=== PATIENT | female | born 1960 | race Caucasian/White ===

== ENCOUNTER 2019-06-04 09:07 | Day surgery (SDC) | payer BC, SELFPAY ==
[2019-06-04 09:15] VITALS: BP 106/74; PULSE 87; RESP 18; TEMP 36.4; O2SAT 98
[2019-06-04] MEDS: Lactated Ringers 1,000 ML 80 ML IV (09:36)
--- NOTE | 2019-06-04 10:12 | W.PM.DSUDISC ---
Discharge Plan Disposition Patient Disposition: HOME Condition: Good Discharge Details Reason For Visit: Colonoscopy Attending Provider: Lupe Echavarria Primary Care Provider: Antoinette Santillan Home Meds and New Rx's Prescriptions: Continued rosuvastatin [Crestor] 5 mg tablet 5 mg PO DAILY RF: 0 amlodipine 5 MG tablet 5 mg PO DAILY RF: 0 levothyroxine [Synthroid] 88 MCG tablet 88 mcg PO DAILY RF: 0 losartan 25 MG tablet 25 mg PO DAILY RF: 0 aspirin [Aspirin Low-Strength] 81 MG tablet,chewable 81 mg PO DAILY RF: 0 diphenhydramine HCl [Benadryl] 25 MG capsule 25 mg PO BID RF: 0 cetirizine [Zyrtec] 10 mg tablet 10 mg PO DAILY RF: 0 nitroglycerin [Nitrostat] 0.4 MG tablet, sublingual 0.4 mg Sublingual PRN PRNRF: 0 Discontinued polyethylene glycol 3350 17 gram/dose powder 238 g PO ONCE Qty: 238 RF: 0 bisacodyl [Dulcolax (bisacodyl)] 5 mg tablet,delayed release (DR/EC) 5 mg PO ONCE Qty: 4 RF: 0 Discharge Instructions Additional Instructions: Findings: Numerous polyps were removed. My office will contact you with biopsy results. Follow up: Plan for a colonoscopy in one year Please call if you develop: fevers >101.5 Nausea or Vomiting Abdominal pain that is not transient DAY SURGERY UNIT POST COLONOSCOPY INSTRUCTIONS 1. Because there will be medication in your system for the next 24 hours, you may feel a little sleepy. Your coordination will be affected. Therefore: a. Do not drive or operate dangerous equipment for 24 hours. b. Do not drink alcohol beverages for 24 hours (not even beer). c. Plan to go home and rest for the day. 2. Generally there are no restrictions on your activity after a day or so has gone by, but you may feel a bit fatigued for a few days. 3 After you arrive home you may have a light meal and return to a normal diet as you can tolerate it without feeling sick to your stomach. 4. After surgery, you may feel pain or discomfort. This should be only transient, but if it persists please contact your doctor. 5. If there are any questions regarding the findings of your procedure, please feel free to contact your doctor. 6. If you are unable to contact your doctor with a problem, contact the [facility] [place] at [phone]. 4. Continue all your regular medications unless directed otherwise. I understand the above instructions and have no questions. Signature of Patient or Responsible Adult Escort Date/Time Name of Responsible Adult Escort Signature of Nurse Date/Time Activity:: Activity as Tolerated Diet:: As Tolerated Discharge Orders Discharge Orders: Discharge Order (Routine); Ordered 06/04/19 Ordered By: Lupe Echavarria DS: Diagnosis Discharge Diagnosis (1) Colon polyps: Status: Acute
--- NOTE | 2019-06-04 10:34 | BOWEL_PTH ---
PATIENT: Tiff Britt LOC: [facility] U#:[id number] AGE/SX: 58/F ROOM: RE06/04/[address]: Lupe Echavarria MD : 1960 BED: DIS: 06/04/2019 SPEC #: [id number] RECD: 06/04/19 12:48 STATUS: TYRESE REQ #: [id number] MAGED: 06/04/19 10:[address]: Lupe Echavarria DEPT: Surgical Specimen RECD BY: Maranda Nielsen ENTERED: 06/04/19 12:49 SP TYPE: Bowel OTHR DR: Antoinette Santillan Tissues: 1 - BIOPSY BOWEL 2 - BIOPSY BOWEL 3 - BIOPSY BOWEL 4 - BIOPSY BOWEL Procedures: GROSS AND MICRO LEVEL 4 Comments: [id number]
[2019-06-04 11:45] VITALS: BP 121/64; PULSE 68; RESP 16; TEMP 36.4; O2SAT 96
--- NOTE | 2019-06-04 12:02 | COLE_ITS ---
DATE OF PROCEDURE: June 04, 2019 PREOPERATIVE DIAGNOSIS: History of colon polyps. POSTOPERATIVE DIAGNOSIS: Colon polyps. PROCEDURE: Colonoscopy with polypectomy. SURGEON: Lupe Echavarria M.D. ANESTHESIA: Monitored Anesthesia Care INDICATIONS: This is a 58-year-old woman whose prior colonoscopy in 2016 showed tubular adenomas x 1 2. She is asymptomatic. PROCEDURE: She was placed in the left Abad position. Propofol was titrated to sedation. Digital re ctal examination revealed no abnormalities. The scope was advanced to the cecum without difficulty. The ileocecal valve and appendiceal orifice were clearly identified. Her prep was excellent. In th e cecum there were three diminutive polyps that were removed with cold snare polypectomy. In the pro ximal transverse colon there were three polyps removed with cold snare polypectomy and a fourth sligh tly more distal that was sent in the same specimen container. The descending colon had two polyps re moved with the use of cautery. The rectal area had six polyps removed using snare polypectomy and ca utery. These were sent in the same specimen container. Retroflex view showed no other abnormalities . All of these polyps appeared benign and were all less than a centimeter. Depending on the patholo gy results, she will need a follow-up in one to three years. My office will contact her. cc: Antoinette Santillan APRN
== END 2019-06-04 11:55 | disposition home or self-care (01) ==
PROVIDERS: PCP Nurse Practitioner; Visit Provider Surgery
PROC: 0DJD8ZZ Inspection of Lower Intestinal Tract, Via Natural or Artificial Opening Endoscopic (ICD-10-PCS; CPT 45378; principal; 2019-06-04 10:15)
DX: Z12.11 Encounter for screening for malignant neoplasm of colon (principal); D12.0 Benign neoplasm of cecum; D12.3 Benign neoplasm of transverse colon; D12.4 Benign neoplasm of descending colon; D12.8 Benign neoplasm of rectum; Z86.010 Personal history of colon polyps; I10 Essential (primary) hypertension; K21.9 Gastro-esophageal reflux disease without esophagitis
CPT/HCPCS: 45385; 45384; 88305

== ENCOUNTER 2020-05-26 07:00 | Day surgery (SDC) | payer BC, SELFPAY ==
[2020-05-26 07:16] VITALS: BP 111/74; PULSE 100; RESP 17; TEMP 36.4; O2SAT 97
[2020-05-26] MEDS: Lactated Ringers 1,000 ML 80 ML IV (07:38)
--- NOTE | 2020-05-26 08:02 | W.PM.DSUDISC ---
Discharge Plan Disposition Patient Disposition: HOME Condition: Good Discharge Details Reason For Visit: Colonoscopy Attending Provider: Lupe Echavarria Primary Care Provider: Antoinette Santillan Home Meds and New Rx's Prescriptions: Continued rosuvastatin [Crestor] 5 mg tablet 5 mg PO DAILY RF: 0 amlodipine 5 MG tablet 5 mg PO DAILY RF: 0 levothyroxine [Synthroid] 88 MCG tablet 88 mcg PO DAILY RF: 0 losartan 25 MG tablet 25 mg PO DAILY RF: 0 aspirin [Aspirin Low-Strength] 81 MG tablet,chewable 81 mg PO HS RF: 0 diphenhydramine HCl [Benadryl] 25 MG capsule 25 mg PO BID RF: 0 nitroglycerin [Nitrostat] 0.4 MG tablet, sublingual 0.4 mg Sublingual PRN PRNRF: 0 Discontinued polyethylene glycol 3350 17 gram/dose powder 238 g PO ONCE Qty: 238 RF: 0 bisacodyl 5 mg tablet,delayed release (DR/EC) 5 mg PO ONCE Qty: 4 RF: 0 Discharge Instructions Additional Instructions: Findings: 40 tiny polyps were removed. My office will contact you with biopsy results. Follow up: Plan for a colonoscopy in one year. Please call if you develop: fevers >101.5 Nausea or Vomiting Abdominal pain that is not transient DAY SURGERY UNIT POST COLONOSCOPY INSTRUCTIONS 1. Because there will be medication in your system for the next 24 hours, you may feel a little sleepy. Your coordination will be affected. Therefore: a. Do not drive or operate dangerous equipment for 24 hours. b. Do not drink alcohol beverages for 24 hours (not even beer). c. Plan to go home and rest for the day. 2. Generally there are no restrictions on your activity after a day or so has gone by, but you may feel a bit fatigued for a few days. 3 After you arrive home you may have a light meal and return to a normal diet as you can tolerate it without feeling sick to your stomach. 4. After surgery, you may feel pain or discomfort. This should be only transient, but if it persists please contact your doctor. 5. If there are any questions regarding the findings of your procedure, please feel free to contact your doctor. 6. If you are unable to contact your doctor with a problem, contact the hospital at [phone]. 7. Continue all your regular medications unless directed otherwise. I understand the above instructions and have no questions. Signature of Patient or Responsible Adult Escort Date/Time Name of Responsible Adult Escort Signature of Nurse Date/Time Activity:: Activity as Tolerated Diet:: As Tolerated Discharge Orders Discharge Orders: Discharge Order (Routine); Ordered 05/26/20 Ordered By: Lupe Echavarria DS: Diagnosis Discharge Diagnosis (1) Colon polyps: Status: Acute
--- NOTE | 2020-05-26 08:03 | W.COLOREPORT ---
Date of service: 05/26/20 Time of Service: 09:12 Colonoscopy Report Date of procedure: 05/26/20 Pre-op diagnosis general: History of colon polyps Post-op diagnosis procedure note: other (Colon polyps) Procedure: Colonoscopy with cold forceps polypectomy Surgeon: Lupe Echavarria Anesthesia proc note operative: MAC Indications: This patient presents for follow up colonoscopy. She had 15 polyps removed last year. No symptoms Procedure Description: The patient was placed in the left Abad position. Propofol was titrated to sedation. Digital rectal examination revealed no abnormalities. The scope was advanced to the cecum without difficulty. The ileocecal valve and appendiceal orifice were clearly identified. The prep was good. Numerous diminuitive polyps were removed with the cold forceps and sent to pathology. Nine polyps were removed from the cecum, 6 from the ascending colon, 8 from the transverse colon, 7 from the descending, 2 from the sigmoid and 8 from the rectum. Total number removed were 40. The patient tolerated the procedure well and was stable to recovery. Plan for colonoscopy in one year.
--- NOTE | 2020-05-26 08:30 | BOWEL_PTH ---
PATIENT: Tiff Britt LOC: [facility] U#:[id number] AGE/SX: 59/F ROOM: RE05/26/[address]: Lupe Echavarria MD : 1960 BED: DIS: 05/26/2020 SPEC #: [id number] RECD: 05/26/20 12:47 STATUS: TYRESE REQ #: [id number] MAGED: 05/26/20 08:[address]: Lupe Echavarria DEPT: Surgical Specimen RECD BY: Maranda Nielsen ENTERED: 05/26/20 12:51 SP TYPE: Bowel OTHR DR: Antoinette Santillan Tissues: 1 - BIOPSY BOWEL 2 - BIOPSY BOWEL 3 - BIOPSY BOWEL 4 - BIOPSY BOWEL 5 - BIOPSY BOWEL 6 - BIOPSY BOWEL Procedures: GROSS AND MICRO LEVEL 4 Comments: [id number]
[2020-05-26 10:33] VITALS: BP 117/78; PULSE 65; RESP 18; TEMP 36.3; O2SAT 98
== END 2020-05-26 10:15 | disposition home or self-care (01) ==
PROVIDERS: PCP Nurse Practitioner; Visit Provider Surgery
PROC: 0DJD8ZZ Inspection of Lower Intestinal Tract, Via Natural or Artificial Opening Endoscopic (ICD-10-PCS; CPT 45378; principal; 2020-05-26 08:30)
DX: Z12.11 Encounter for screening for malignant neoplasm of colon (principal); Z86.010 Personal history of colon polyps; D12.0 Benign neoplasm of cecum; D12.2 Benign neoplasm of ascending colon; D12.3 Benign neoplasm of transverse colon; D12.4 Benign neoplasm of descending colon; D12.5 Benign neoplasm of sigmoid colon; D12.8 Benign neoplasm of rectum
CPT/HCPCS: 45380; 88305; J2001

== ENCOUNTER 2021-10-15 04:02 | Outpatient (CLI) | payer BC, SELFPAY ==
[2021-10-16 20:41] LABS: COVID-19 RT-PCR UVMMC Result Negative (Negative)
== END 2021-10-15 04:03 | disposition home or self-care (01) ==
LOC: LBO 04:03
PROVIDERS: PCP Nurse Practitioner; Visit Provider Surgery
DX: Z20.822 Contact with and (suspected) exposure to COVID-19 (principal)
CPT/HCPCS: 87635; U0003

== ENCOUNTER 2021-10-17 12:25 | Day surgery (SDC) | payer BC, SELFPAY ==
--- NOTE | 2021-10-17 06:55 | W.COLOREPORT ---
Colonoscopy Report Date of procedure: 10/17/21 Pre-op diagnosis general: Colon Cancer Screening, Hx of colon polyps Post-op diagnosis procedure note: same Procedure: Colonoscopy with polypectomy Surgeon: Farzana Jones Anesthesia Type: General:No Airway (Mehul Joy CRNA) Estimated blood loss (mL): 5 Pathology: other (61 polyps) Complications: None Disposition: same day Indications: The patient is here for Colonoscopy pre-op. Her last screening was in 2019 and was remarkable for 40 tubular adenomatous polyps. She has no family history of colon cancer. She has not had any bowel habit changes. -Discussed colonoscopy bowel prep as well as the procedure. Discussed possible complications of the procedure to include bleeding, pain, perforation, missed small lesion/polyp, sore throat, aspiration and adverse reaction to the medications. Questions were answered to patient?s satisfaction. No guarantees were implied or given. She will hold her aspirin x 5 days prior to her procedure. Prep: Miralax/Dulcolax Procedure Start Time: 13:37 Procedure End Time: 15:03 Retraction Time: 68 minutes Findings: 61 polyps ranging in size from 0.3 cm to 0.8 cm Procedure Description: After informed consent was obtained the patient was taken to the procedure room and placed in a left decubitous position. Monitors were applied and a time out was done. The patients name, date of , procedure, allergies to medications and metal in their body was reviewed. The patient was then sedated. Once sedated and comfortable a rectal exam was done. External exam was normal. Internal exam revealed a normal sphincter tone and no palpable masses. The scope was then introduced and retro-flexed. No internal hemorrhoids, polyps or masses were identified on retro-flexion. The scope was then advanced to the cecum without difficulty. The ileocecal vlave and appendiceal orifice were identified. The prep was good. The scope was then slowly retracted over 68 minutes back into the rectum. Polyps were removed with cold forceps in the cecum x3, ascending colon x7, transverse colon x8, descending colon x18, sigmoid colon x20 and rectum x5. There was no diverticulosis noted. The scope was removed and the patient was woken up and taken back to Same day surgery in stable condition. The patient tolerated the procedure well and there were no immediate complications. Follow up: The patient should follow up in 1 year unless they develop changes in bowel habits or other new gastrointestinal complaints.
--- NOTE | 2021-10-17 06:56 | PDOC.DSDIS_ITS ---
Discharge Plan Disposition Patient Disposition: HOME Condition: Good Discharge Details Reason For Visit: Colonoscopy Attending Provider: Farzana Jones Primary Care Provider: Antoinette Santillan Home Meds and New Rx's Prescriptions: Continued famotidine 40 mg tablet 40 mg PO BID RF: 0 ondansetron 4 mg tablet,disintegrating 4 mg PO Q6H PRN (Reason: nausea and vomiting) Qty: 7 RF: 0 rosuvastatin [Crestor] 5 mg tablet 5 mg PO DAILY RF: 0 amlodipine 5 MG tablet 5 mg PO DAILY RF: 0 levothyroxine [Synthroid] 88 MCG tablet 88 mcg PO DAILY RF: 0 losartan 25 MG tablet 25 mg PO DAILY RF: 0 aspirin [Aspirin Low-Strength] 81 MG tablet,chewable 81 mg PO HS RF: 0 diphenhydramine HCl [Benadryl] 25 MG capsule 25 mg PO BID RF: 0 nitroglycerin [Nitrostat] 0.4 MG tablet, sublingual 0.4 mg Sublingual PRN PRNRF: 0 elderberry fruit 200 mg Capsule 200 mg PO DAILY RF: 0 Discontinued polyethylene glycol 3350 17 gram/dose powder 238 g PO ONCE Qty: 238 RF: 0 bisacodyl [Dulcolax (bisacodyl)] 5 mg tablet,delayed release (DR/EC) 5 mg PO ONCE Qty: 4 RF: 0 Discharge Instructions Additional Instructions: Findings: 61 polyps Follow up: I will refer you to Gastroenterology at [facility] to discuss genetic testing and follow their recommendations Please call if you develop: fevers >101.5 Nausea or Vomiting Abdominal pain that is not transient Rectal bleeding that is more then a tbsp A hard abdomen and inability to pass gas DAY SURGERY UNIT POST ENDOSCOPY INSTRUCTIONS Instructions for everyone who is given Anesthesia: For your safety, please do the following for the next 24 Hours: a. Do not drive or operate dangerous equipment b. Do not drink alcohol beverages or use any recreational drugs for the first 24 hours or while taking pain medications. The medications in your body may have a reaction that can be dangerous. c. Do not make any important decisions or sign any important papers 1. Generally there are no restrictions on your activity after a day or so has gone by, but you may feel a bit fatigued for a few days. 2. After you arrive home you may have a light meal and return to a normal diet as you can tolerate it without feeling sick to your stomach. 3. After surgery, you may feel pain or discomfort. This should be only transient, but if it persists please contact your doctor. 4. If there are any questions regarding the findings of your procedure, please feel free to contact your doctor. 6. If you are unable to contact your doctor with a problem, contact the hospital at [phone]. 7. Continue all your regular medications unless directed otherwise. I understand the above instructions and have no questions. Signature of Patient or Responsible Adult Escort Date/Time Name of Responsible Adult Escort Signature of Nurse Date/Time Activity:: Activity as Tolerated Diet:: As Tolerated Discharge Orders Discharge Orders: Discharge Order (Routine); Ordered 10/17/21 Ordered By: Farzana Jones
[2021-10-17 12:40] VITALS: BP 119/85; PULSE 109; RESP 16; TEMP 36; O2SAT 97
[2021-10-17] MEDS: Lactated Ringers 1,000 ML 80 ML IV (13:04)
--- NOTE | 2021-10-17 13:07 | W.ANESPRE ---
General Info Date of Service Date Performed: 10/17/21 Height: 5 ft 4 in Weight: 74.1 kg Body Mass Index (BMI): 28.0 Surgical Procedure: Operation Date: 10/17/21 12:50 Proposed Procedures Side Surgeon p Colonoscopy Farzana Jones MD Meds Allergies and Home Medications Allergies Allergy/AdvReac Type Severity Reaction Status Date / Time simvastatin AdvReac Verified 10/17/21 12:36 Home Medication Medication Instructions Recorded amlodipine 5 mg PO DAILY tab-cap 01/08/16 aspirin [Aspirin Low-Strength] 81 mg PO HS tab-cap 01/08/16 levothyroxine [Synthroid] 88 mcg PO DAILY tab-cap 01/08/16 losartan 25 mg PO DAILY tab-cap 01/08/16 diphenhydramine HCl [Benadryl] 25 mg PO BID tab-cap 01/12/16 nitroglycerin [Nitrostat] 0.4 mg SUBLINGUAL PRN PRN 02/05/16 rosuvastatin 5 mg tablet 5 mg PO DAILY 05/14/19 bisacodyl 5 mg tablet,delayed 5 mg PO ONCE #4 tab 10/08/21 release famotidine 40 mg tablet 40 mg PO BID 10/08/21 ondansetron 4 mg disintegrating 4 mg PO Q6H PRN #7 tab 10/08/21 tablet polyethylene glycol 3350 17 238 g PO ONCE #238 g 10/08/21 gram/dose oral powder elderberry fruit [Elderberry] 200 mg PO DAILY 10/16/21 Current Visit Medications: Current Medications Generic Name Dose Route Start Last Admin Trade Name Freq PRN Reason Stop Dose Admin Hyoscyamine Sulfate 0.125 mg 10/17/21 06:56 Hyoscyamine 0.125 Mg Sl/Oral/Chew SL DIRECTED PRN Ringer's Solution 1,000 mls @ 80 mls/hr 10/17/21 06:00 10/17/21 13:04 IV 10/19/21 23:59 80 mls/hr INFUSION ED Administration IV Miscellaneous Supplies 1 each 10/17/21 06:00 Iv Access IV 10/19/21 23:59 DIRECTED DE Ondansetron HCl 4 mg 10/17/21 06:56 Ondansetron 4 Mg/2 Ml Vial IVP Q4H PRN PRN Nausea / Vomiting Sodium Chloride 0 ml 10/17/21 06:00 Normal Saline Flush 10 Ml Syr IV 10/19/21 23:59 PRN PRN Sodium Chloride 0 ml 10/17/21 06:00 Normal Saline 10 Ml Vial IJ 10/19/21 23:59 DIRECTED PRN Sterile Water 0 ml 10/17/21 06:00 Water,Injection,Sterile 10 Ml Vial IJ 10/19/21 23:59 DIRECTED PRN PFSH Active Problems Active Problems: Problem Status Onset Code FH: breast cancer Z80.3 Colon polyps K63.5 History of colon polyps Z86.010 Tubular adenoma ~05/2019 D36.9 Medical History Medical History Adjustment disorder CAD (coronary artery disease) GERD (gastroesophageal reflux disease) Hypertension Hypothyroidism [place] (myocardial infarction) 2009 - cath showed no disease. Was told it was a coronary artery spasm F/U with at [facility] with Dr. Carlson and Dr. Zaragoza, last seen 2018 Tubular adenoma of colon Surgical History Surgical History heart cath 2009 History of colonoscopy 06/04/19 Dr Lupe Echavarria, [facility], 14 polyps, tubular adenomas, repeat in one year. Tobacco Smoking/Tobacco Use Status: Former Tobacco Use Alcohol Alcohol Intake: former Substance Use Substance use: Never Substance use type: does not use Vital Signs and Lab Results Vital Signs Most Recent Vital Signs in EMR: Most Recent Vital Signs Temp Pulse Resp BP Pulse Ox 36.0 C L 109 H 16 119/85 97 10/17/21 12:40 10/17/21 12:40 10/17/21 12:40 10/17/21 12:40 10/17/21 12:40 Lab Results Blood Type / Crossmatch: No Data to Display Complete Blood Count: No Data to Display Complete Metabolic Panel: No Data to Display Liver Function Panel: No Data to Display Coagulation Panel: No Data to Display Cardiac Panel: No Data to Display Arterial Blood Gas: No Data to Display Venous Blood Gas: No Data to Display Pancreas Panel: No Data to Display Thyroid Panel: No Data to Display Infectious Disease: Coronavirus (COVID-19)(PCR) Negative (Negative) 10/15/21 08:41 10/15/21 Blood Cultures: No Data to Display Toxicology Panel: No Data to Display Anesthesia Assessment and Plan Anesthesia History Personal History: No History of Anesthesia Complications Family History: No Family History of Anesthesia Complications Exercise Tolerance Exercise Tolerance: Metabolic Equivalents>4 Pertinent Negatives Pertinent Negatives: No Symptoms of GERD, No Major Pulmonary Symptoms or Complaints and No History of CVA/TIA Cardiac & Pulmonary Exam Cardiac Exam: Normal S1/S2 Heart Sounds Pulmonary Exam: Clear Bilateral Breath Sounds Implantable Cardiac Device Does patient have a Pacemaker or an ICD?: No Airway Exam Known Difficult Airway: No Mallampati Class: 2 Mouth Opening: Narrow (< 3cm) Thyromental Distance: Greater than 3 cm Neck Range of Motion: Full ROM Neck Circumference: Normal Teeth Condition: Normal Dentition ASA Classification ASA Score: ASA 3 Emergency Case?: No NPO Status NPO Status: NPO Clears >2 hours, Solids >8 hours Anesthesia Plan Resuscitation Status: Full Code Anesthesia Technique: General Anesthesia Airway Planned: Natural Airway Monitors Used: Standard Monitors
[2021-10-17 13:29] VITALS: BMI 28.0
--- NOTE | 2021-10-17 14:00 | BOWEL_PTH ---
PATIENT: Tiff Britt LOC: [facility] U#:[id number] AGE/SX: 61/F ROOM: RE10/17/[address]: Farzana Jones MD : 1960 BED: DIS: 10/17/2021 SPEC #: [id number] RECD: 10/17/21 16:58 STATUS: TYRESE REQ #: [id number] MAGED: 10/17/21 14:[address]: Farzana oJnes DEPT: Surgical Specimen RECD BY: Maranda Nielsen ENTERED: 10/17/21 17:00 SP TYPE: Bowel OTHR DR: Antoinette Santillan Tissues: 1 - BIOPSY BOWEL 2 - BIOPSY BOWEL 3 - BIOPSY BOWEL 4 - BIOPSY BOWEL 5 - BIOPSY BOWEL 6 - BIOPSY BOWEL Procedures: GROSS AND MICRO LEVEL 4 Comments: [id number] (TOTAL POLYPS = 61)
[2021-10-17 15:05] VITALS: BP 124/77; PULSE 99; RESP 18; TEMP 36.4; O2SAT 98
[2021-10-17] MEDS: Ondansetron 4 MG/2 ML VIAL IVP (15:16)
[2021-10-17 15:35] VITALS: BP 117/84; PULSE 90; RESP 16; TEMP 36.5; O2SAT 96
--- NOTE | 2021-10-17 15:40 | W.ANESPOSTOP ---
Postoperative Evaluation Date, Time and Location Date Performed: 10/17/21 Time Performed: 15:40 Patient Location: Day Surgery Unit Vital Signs Most Recent Imported Vital Signs: Most Recent Vital Signs Temp Pulse Resp BP Pulse Ox 36.5 C 90 16 117/84 96 10/17/21 15:35 10/17/21 15:35 10/17/21 15:35 10/17/21 15:35 10/17/21 15:35 Pain Score Most Recent Pain Score: Most Recent Pain Score Pain Level 0 10/17/21 15:35 Assessment Mental Status: Awake (Alert & Oriented to Patient Baseline) Airway and Respiratory Function: Patent airway with normal (patient baseline) respiratory exam Cardiovascular Function: Hemodynamically Stable Hydration Status: Adequately Hydrated Nausea & Vomiting: No Nausea or Vomiting (N/V resolved with one dose of 4mg Zofran. Patient is taking PO and states feeling better. ) Pain: Pt. Denies Any Pain Peripheral Nerve Block: Patient did not receive a nerve block
== END 2021-10-17 16:15 | disposition home or self-care (01) ==
LOC: SUR 12:25
PROVIDERS: PCP Nurse Practitioner; Visit Provider Surgery
PROC: 0DJD8ZZ Inspection of Lower Intestinal Tract, Via Natural or Artificial Opening Endoscopic (ICD-10-PCS; CPT 45378; principal; 2021-10-17 12:45)
DX: Z12.11 Encounter for screening for malignant neoplasm of colon (principal); D12.0 Benign neoplasm of cecum; D12.2 Benign neoplasm of ascending colon; D12.3 Benign neoplasm of transverse colon; D12.4 Benign neoplasm of descending colon; D12.5 Benign neoplasm of sigmoid colon; D12.8 Benign neoplasm of rectum; Z86.010 Personal history of colon polyps; I10 Essential (primary) hypertension
CPT/HCPCS: 45380; 88305; J2405

== ENCOUNTER 2022-11-12 06:18 | Day surgery (SDC) | payer BC, SELFPAY ==
--- NOTE | 2022-11-11 20:10 | W.PM.DSUDISC ---
Date of service: 11/12/22 Time of Service: 08:43 Discharge Plan Disposition Patient Disposition: Home Condition: Good Discharge Details Reason For Visit: Colonoscopy Attending Provider: Dion Virgen Primary Care Provider: Antoinette Santillan Home Meds and New Rx's Prescriptions: Continued famotidine 40 mg tablet 40 mg PO BID rosuvastatin [Crestor] 5 mg tablet 5 mg PO DAILY loratadine [Allergy Relief (loratadine)] 10 mg tablet 10 mg PO DAILY ondansetron 8 mg tablet,disintegrating 8 mg PO Q8H PRN (Reason: nausea and vomiting) Qty: 4 0RF Rx Instructions: Take 1 tablet by mouth at the beginning of your bowel prep. Repeat as needed every 8 hours for nausea and vomiting scopolamine base 1 mg over 3 days patch 3 day 1 patch transdermal Q3D PRN (Reason: nausea and vomiting) Qty: 1 0RF Rx Instructions: Clean and dry the area behind your ear. Apply 1 patch to that area the night before your colonoscopy. levothyroxine [Synthroid] 88 MCG tablet 75 mcg PO DAILY aspirin [Aspirin Low-Strength] 81 MG tablet,chewable 81 mg PO HS amlodipine 5 mg tablet 2.5 mg PO DAILY nitroglycerin [Nitrostat] 0.4 MG tablet, sublingual 0.4 mg Sublingual PRN PRN elderberry fruit 200 mg Capsule 200 mg PO DAILY ibuprofen 200 mg Capsule 200 mg PO Q6H PRN fluticasone propionate 50 mcg/actuation [place],Suspension 1 spray INTRANASAL DAILY Rx Instructions: administer into each nostril Discontinued bisacodyl [Dulcolax (bisacodyl)] 5 mg tablet,delayed release (DR/EC) 5 mg PO ONCE Qty: 4 0RF Rx Instructions: Take according to provider's instructions for colonoscopy prep. polyethylene glycol 3350 17 gram/dose powder 17 g PO ONCE Qty: 238 0RF Rx Instructions: To be taken as directed by prescriber's office for colonoscopy prep. Discharge Instructions Additional Instructions: 1. If tolerated, consume a soft, low fiber diet for 1-2 days. 2[address] Do not drive, drink alcohol, operate machinery, make critical decisions, or do activities that require coordination or balance for 24 hours. 3. Because air was put into your colon during the procedure, expelling air from your rectum (passing gas or farting) is normal. 4. You may not have a bowel movement for 1-3 days because of the colonoscopy prep. This is normal. 5. Go directly to the emergency room if you notice any of the following: Develop chills (warm to touch), or if you have a thermometer and your temperature is above 101 Difficulty breathing or difficultly swallowing Persistent vomiting Severe abdominal pain, other than gas cramps Severe chest pain Black, tarry stools Any bleeding ? exceeding one tablespoon 6. Call your physician if the site where your intravenous was started becomes red, swollen, painful, and warm to touch. 7. Your physician has reviewed your pre-procedure medications. Please continue to take those medications as previously ordered. You will be given specific information/education regarding any changes to your medications before leaving. 8. It would be fine to resume your aspirin tonight. Activity:: Activity as Tolerated Diet:: As Tolerated Discharge Orders Discharge Orders: Discharge Order (Routine); Ordered 11/11/22 Ordered By: Dion Virgen DS: Diagnosis Discharge Diagnosis (1) Familial adenomatous polyposis: Status: Acute Asessment and Plan: Maranda, I removed 14 polyps today. You will probably take a week or so to get the results of the polypectomies. I will certainly call you when I have those details. At this point, nothing looked particularly worrisome, and based on your history, I would recommend a follow-up colonoscopy in 1 year.
--- NOTE | 2022-11-11 20:13 | W.COLOREPORT ---
Date of service: 11/12/22 Time of Service: 08:49 Colonoscopy Report Date of procedure: 11/12/22 Pre-op diagnosis general: FAP Post-op diagnosis procedure note: same Procedure: Colonoscopy with polypectomy Surgeon: Dion Virgen Anesthesia Type: General:No Airway Estimated blood loss (mL): 30 Pathology: other (Cecal polyps x4, ascending colon polyps x3, transverse colon polyps x5, descending colon polyp x1, rectal polyp x1) Complications: None Disposition: same day Indications: Maranda is a 62-year-old woman with attenuated familial adenomatous polyposis syndrome. She is undergoing yearly surveillance colonoscopies Prep: Miralax/Dulcolax Procedure Start Time: 07:32 Procedure End Time: 08:30 Retraction Time: 48 Findings: Grade 1 internal hemorrhoids, multiple colorectal polyps Procedure Description: After the induction of monitored anesthetic care, and with the patient in left lateral decubitus position, I began by performing an external anorectal exam.? Perineum and skin were normal, as was the anal verge.? There was no evidence of external hemorrhoids.? Next, I performed a digital rectal exam.? I did not appreciate any abnormal findings.? Next, I advanced a colonoscope into the rectal vault.? I performed retroflexion.? There were grade 1 internal hemorrhoids.? Using insufflation, I then advanced the colonoscope beyond the rectal folds and into the sigmoid colon before advancing towards the cecum.? The quality of the prep was excellent.? The scope was noted to be in the cecum by identification of the ileocecal valve and appendiceal orifice.? I then began withdrawing the colonoscope using repeated irrigation as necessary for full evaluation of the colonic mucosa. During the course of the retraction, I performed cold forcep polypectomy on a total of 13 polyps. I estimate they ranged in size from 0.25 cm to 0.5 cm. All were sessile. There was minimal bleeding from each site once the scope was withdrawn to the level of the rectum, great care was taken to examine portions of the rectal folds.? I found 1 additional rectal polyp. It was 0.25 cm in size. I removed it with cold forcep polypectomy. There was minimal bleeding. Finally, the scope was withdrawn and the patient was brought to the same-day surgery recovery unit as the anesthetic wore off. ?The findings and instructions were shared with the patient prior to discharge.
[2022-11-12 06:32] VITALS: BP 110/74; PULSE 77; RESP 16; TEMP 37; O2SAT 97
--- NOTE | 2022-11-12 07:04 | W.ANESPRE ---
General Info Date of Service Date Performed: 11/12/22 Height: 5 ft 4 in Weight: 68.5 kg Body Mass Index (BMI): 25.9 Surgical Procedure: Operation Date: 11/12/22 07:35 Proposed Procedure Side Surgeon kali Virgen MD Meds Allergies and Home Medications Allergies Allergy/AdvReac Type Severity Reaction Status Date / Time simvastatin AdvReac muscle Verified 11/12/22 06:40 aches Home Medication Medication Instructions Recorded aspirin 81 mg chewable tablet 81 mg PO HS 01/08/16 (Aspirin Low-Strength) levothyroxine 88 mcg tablet 75 mcg PO DAILY 01/08/16 (Synthroid) nitroglycerin 0.4 mg sublingual 0.4 mg sublingual PRN PRN 02/05/16 tablet (Nitrostat) rosuvastatin 5 mg tablet (Crestor) 5 mg PO DAILY 05/14/19 famotidine 40 mg tablet 40 mg PO BID 10/08/21 elderberry fruit 200 mg capsule 200 mg PO DAILY 10/16/21 amlodipine 5 mg tablet 2.5 mg PO DAILY 10/28/22 loratadine 10 mg tablet (Allergy 10 mg PO DAILY 10/28/22 Relief (loratadine)) ondansetron 8 mg disintegrating 8 mg PO Q8H PRN nausea and 10/28/22 tablet vomiting #4 tabs scopolamine base 1 mg over 3 days 1 patch transdermal Q3D PRN nausea 10/28/22 transdermal patch and vomiting #1 ea fluticasone propionate 50 1 spray intranasal DAILY 11/11/22 mcg/actuation nasal spray,suspension ibuprofen 200 mg capsule 200 mg PO Q6H PRN 11/11/22 Current Visit Medications: Current Medications Generic Name Dose Route Start Last Admin Trade Name Freq PRN Reason Stop Dose Admin Ringer's Solution 1,000 mls @ 80 mls/hr 11/12/22 06:00 IV 12/11/22 23:59 INFUSION DE IV Miscellaneous Supplies 1 each 11/12/22 06:00 Iv Access IV 12/11/22 23:59 DIRECTED DE Sodium Chloride 0 ml 11/12/22 06:00 Normal Saline Flush 10 Ml Syr IV 12/11/22 23:59 PRN PRN Sodium Chloride 0 ml 11/12/22 06:00 Normal Saline 10 Ml Vial IJ 12/11/22 23:59 DIRECTED PRN Sterile Water 0 ml 11/12/22 06:00 Water,Injection,Sterile 10 Ml Vial IJ 12/11/22 23:59 DIRECTED PRN PFSH Active Problems Active Problems: Problem Status Onset Code Familial adenomatous polyposis D12.6 FH: breast cancer Z80.3 Colon polyps K63.5 History of colon polyps Z86.010 Tubular adenoma ~05/2019 D36.9 Medical History Medical History Adjustment disorder CAD (coronary artery disease) GERD (gastroesophageal reflux disease) Hypertension Hypothyroidism SD (myocardial infarction) 2010 - cath showed no disease. Was told it was a coronary artery spasm F/U with at [facility] with Dr. Carlson and Dr. Zaragoza, last seen 2019 Tubular adenoma of colon Medical History Comments:: 11/11/22 - pt reports PONV following previous colos. Pt has a Scopolaminpatch behind R ear, placed 11/11/22 1930. Pt reports she took Zofran 11/11/22 at 09:30am & 18:00. Surgical History Surgical History heart cath 2009 History of colonoscopy 06/04/19 Dr Lupe Echavarria, [facility], 14 polyps, tubular adenomas, repeat in one year. Tobacco Smoking/Tobacco Use Status: Former Tobacco Use Alcohol Alcohol Intake: former Substance Use Substance use: Never Substance use type: does not use Vital Signs and Lab Results Vital Signs Most Recent Vital Signs in EMR: Most Recent Vital Signs Temp Pulse Resp BP Pulse Ox 37 C 77 16 110/74 97 11/12/22 06:32 11/12/22 06:32 11/12/22 06:32 11/12/22 06:32 11/12/22 06:32 Lab Results Blood Type / Crossmatch: No Data to Display Complete Blood Count: No Data to Display Complete Metabolic Panel: No Data to Display Liver Function Panel: No Data to Display Coagulation Panel: No Data to Display Cardiac Panel: No Data to Display Arterial Blood Gas: No Data to Display Venous Blood Gas: No Data to Display Pancreas Panel: No Data to Display Thyroid Panel: No Data to Display Infectious Disease: No Data to Display Blood Cultures: No Data to Display Toxicology Panel: No Data to Display Imaging and Studies Imaging and Studies Study information below may be from another EMR and interpreted by another provider. Please see original notes in EMR for more complete details. Echocardiogram Summary: 12/23/09: EF 65%, normal valves. Cardiac Catheterization Summary: 12/23/09: [facility]: Normal Arteries Anesthesia Assessment and Plan Anesthesia History Personal History: PONV Family History: No Family History of Anesthesia Complications Exercise Tolerance Exercise Tolerance: Metabolic Equivalents>4 Pertinent Negatives Pertinent Negatives: No Symptoms of GERD Cardiac & Pulmonary Exam Cardiac Exam: Normal S1/S2 Heart Sounds Pulmonary Exam: Clear Bilateral Breath Sounds Implantable Cardiac Device Does patient have a Pacemaker or an ICD?: No Airway Exam Known Difficult Airway: No Mallampati Class: 2 Mouth Opening: Narrow (< 3cm) Thyromental Distance: Greater than 3 cm Neck Range of Motion: Full ROM Neck Circumference: Normal Teeth Condition: Normal Dentition ASA Classification ASA Score: ASA 3 Emergency Case?: No NPO Status NPO Status: NPO Clears >2 hours, Solids >8 hours Anesthesia Plan Resuscitation Status: Full Code Anesthesia Technique: General Anesthesia Airway Planned: Natural Airway Monitors Used: Standard Monitors
[2022-11-12] MEDS: Lactated Ringers 1,000 ML 80 ML IV (07:05)
[2022-11-12 07:06] VITALS: BMI 25.9
--- NOTE | 2022-11-12 07:45 | BOWEL_PTH ---
PATIENT: Tiff Britt LOC: [facility] U#:[id number] AGE/SX: 62/F ROOM: RE11/12/[address]: Dion Virgen MD : [id number] BED: DIS: 11/12/2022 SPEC #: [id number] RECD: 11/12/22 12:38 STATUS: TYRESE RE #: [id number] MAGED: 11/12/22 07:[address]: Dion Virgen DEPT: Surgical Specimen RECD BY: Maranda Nielsen ENTERED: 11/12/22 12:41 SP TYPE: Bowel OTHR DR: Antoinette Santillan Tissues: 1 - BIOPSY BOWEL 2 - BIOPSY BOWEL 3 - BIOPSY BOWEL 4 - BIOPSY BOWEL 5 - BIOPSY BOWEL Procedures: GROSS AND MICRO LEVEL 4 Comments: [id number]
[2022-11-12 08:36] VITALS: BP 112/73; PULSE 81; RESP 16; TEMP 36.2; O2SAT 99
--- NOTE | 2022-11-12 08:58 | W.ANESPOSTOP ---
Postoperative Evaluation Date, Time and Location Date Performed: 11/12/22 Time Performed: 08:58 Patient Location: Day Surgery Unit Vital Signs Most Recent Imported Vital Signs: Most Recent Vital Signs Temp Pulse Resp BP Pulse Ox 36.2 C L 81 16 112/73 99 11/12/22 08:36 11/12/22 08:36 11/12/22 08:36 11/12/22 08:36 11/12/22 08:36 Pain Score Most Recent Pain Score: Most Recent Pain Score Pain Level 0 11/12/22 08:36 Assessment Mental Status: Awake (Alert & Oriented to Patient Baseline) Airway and Respiratory Function: Patent airway with normal (patient baseline) respiratory exam Cardiovascular Function: Hemodynamically Stable Hydration Status: Adequately Hydrated Nausea & Vomiting: No Nausea or Vomiting Pain: Pt. Denies Any Pain Peripheral Nerve Block: Patient did not receive a nerve block Postoperative Comments:: Pt. had significant laryngospasm during procedure, no desaturation. Suctioned clear secretions. No SOB or other complaints. I feel there is a very low chance that she aspirated.
[2022-11-12 09:08] VITALS: BP 99/68; PULSE 67; RESP 16; TEMP 36.2; O2SAT 98
== END 2022-11-12 09:27 | disposition home or self-care (01) ==
PROVIDERS: PCP Nurse Practitioner; Visit Provider Surgery
PROC: 0DJD8ZZ Inspection of Lower Intestinal Tract, Via Natural or Artificial Opening Endoscopic (ICD-10-PCS; CPT 45378; principal; 2022-11-12 07:30)
DX: Z12.11 Encounter for screening for malignant neoplasm of colon (principal); Z86.010 Personal history of colon polyps; K63.5 Polyp of colon; K62.1 Rectal polyp
CPT/HCPCS: 45380; 88305; J2405; J2704

== ENCOUNTER 2023-05-11 15:13 | Emergency (ER) | payer BC, SELFPAY ==
[2023-05-11] VITALS (40 sets, daily range): BP systolic 98–122; BP diastolic 51–70; PULSE 93–115; RESP 13–32; TEMP 37.1; O2SAT 92–97
[2023-05-11] MEDS: Normal Saline 1,000 ML 1000 ML IV (15:40)
[2023-05-11] MEDS: Ondansetron 4 MG/2 ML VIAL IVP (15:40)
--- NOTE | 2023-05-11 15:42 | ED.GENADUL_ITS ---
Discharge Plan Disposition Patient Disposition: Home Discharge Details Clinical Impression: Gastroenteritis Primary Care Provider: Antoinette Santillan ED Provider: Lauro Choe Home Meds and New Rx's Prescriptions: No Action famotidine 40 mg tablet 40 mg PO BID rosuvastatin [Crestor] 5 mg tablet 5 mg PO DAILY loratadine [Allergy Relief (loratadine)] 10 mg tablet 10 mg PO DAILY ondansetron 8 mg tablet,disintegrating 8 mg PO Q8H PRN (Reason: nausea and vomiting) Qty: 4 0RF Rx Instructions: Take 1 tablet by mouth at the beginning of your bowel prep. Repeat as needed every 8 hours for nausea and vomiting scopolamine base 1 mg over 3 days patch 3 day 1 patch transdermal Q3D PRN (Reason: nausea and vomiting) Qty: 1 0RF Rx Instructions: Clean and dry the area behind your ear. Apply 1 patch to that area the night before your colonoscopy. levothyroxine [Synthroid] 88 MCG tablet 75 mcg PO DAILY aspirin [Aspirin Low-Strength] 81 MG tablet,chewable 81 mg PO HS amlodipine 5 mg tablet 2.5 mg PO DAILY nitroglycerin [Nitrostat] 0.4 MG tablet, sublingual 0.4 mg Sublingual PRN PRN elderberry fruit 200 mg Capsule 200 mg PO DAILY ibuprofen 200 mg Capsule 200 mg PO Q6H PRN fluticasone propionate 50 mcg/actuation [place],Suspension 1 spray INTRANASAL DAILY Rx Instructions: administer into each nostril Discharge Instructions Instructions: Gastroenteritis (ED) Additional Instructions: At this time no emergent findings were noted. Please use the provided nausea medication and follow-up with your primary care provider given mild fluid around your left kidney. You may slowly Advance your diet as tolerated. Return to the emergency department for any new or significant worsening of symptoms. Referrals: Antoinette Santillan [Primary Care Provider] - 1 week (If not improving or as nee ded for reassessment) Discharge Data Discharge Date/Time-TO BE ENTERED AT DEPARTURE: 05/11/23 19:00 Medical Decision Making Patient presenting to the emergency department for chief complaint of nausea vomiting diarrhea. Patient reports around 1 PM she started having some abnormal stools that then progressed to diarrhea and vomiting with subjective fever and chills. Patient denies any ill contacts, denies any known spoiled food, denies all other symptoms. Physical exam shows mild tachycardia soft abdomen with no peritoneal findings, no point tenderness, hyperactive bowel sounds. Exam is otherwise nondiagnostic. We will plan on checking patient's labs and considering CT imaging given that patient did inform nursing that she had some left lower quadrant pain but to me he denied any discomfort. Pending results will give IV fluids and Zofran. Differential diagnosis to include viral or foodborne gastroenteritis, diverticulitis, other intra-abdominal pathology. Reviewed patient's labs and CBC shows slight elevation of neutrophils and decrease of lymphocytes otherwise normal findings, CMP does show anion gap of 11.4 with BUN of 21 creatinine is 0.8 otherwise all other labs including lipase are within normal range. Urinalysis is also completely normal. Reviewed CT imaging and radiologist interpretation that showed some signs of ileitis that I do feel is more related to infectious compared to their concern of potential inflammatory. Patient does have some hydro nephritis that is very mild but does not correlate clinically. We will have patient follow-up with primary care provider given the hydro nephritis for further reassessment. Patient was reassessed here and did state improvement of symptoms and was able to tolerate p.o. intake. Given this I do feel the patient is able to be safely discharged and follow-up on outpatient basis as needed. After discussion of diagnosis and plan of care patient has no further needs, questions, or concerns and states clear understanding to return to the emergency department for any worsening symptoms. This documentation was generated using [employer] dictation system, please disregard any oddities of phrase or misspellings. Imaging Data Radiologic Study: Imaging: CT Scan Radiologist's impression: Exam(s) PROCEDURE INFORMATION: Exam: CT Abdomen And Pelvis With Contrast Exam date and time: 05/11/2023 5:02 PM Age: 62 years old Clinical indication: Other: N/v llq pain TECHNIQUE: Imaging protocol: Computed tomography of the abdomen and pelvis with contrast. Contrast material: 350; Contrast volume: 100 ml; Contrast route: INTRAVENOUS (IV); COMPARISON: No relevant prior studies available. FINDINGS: Lungs: There are a few regions of minimal scarring/atelectasis within the lung bases. Liver: Normal. No mass. Gallbladder and bile ducts: Normal. No calcified stones. No ductal dilation. Pancreas: The pancreas is moderately atrophic but appears otherwise unremarkable without focal lesion or evidence of acute inflammation. Spleen: Normal. No splenomegaly. Adrenal glands: Normal. No mass. Kidneys and ureters: No renal or ureteral stones are identified. There is mild left hydronephrosis without hydroureter. Both kidneys enhance normally and symmetrically. Stomach and bowel: There may be mild wall thickening and hyperenhancement of the terminal ileum adjacent to the ileocecal valve, as seen on axial images 40-41, series 4 and sagittal image 79, series 7 which could represent mild enteritis. There are multiple prominent nondilated fluid-filled loops of ileum proximal to this which could reflect mild ileus. The colon appears normal. There is no evidence for bowel obstruction. Appendix: The appendix is well visualized and appears normal. Intraperitoneal space: There is no evidence of free intraperitoneal fluid. There is no free intraperitoneal air. Vasculature: The aorta and iliac arteries demonstrate moderate atherosclerotic calcification without aneurysm formation. Lymph nodes: Unremarkable. No enlarged lymph nodes. Urinary bladder: No bladder stones are identified. Reproductive: Unremarkable as visualized. Bones/joints: There is [id number] facet arthrosis of the lower lumbar spine. There is multilevel mild spondylosis of the lower thoracic and lumbar spine. No acute fractures or subluxations are identified. Soft tissues: Unremarkable. IMPRESSION: 1. Possible mild terminal ileitis adjacent to the ileocecal valve, as described above. This could be infectious in etiology but can also be seen in the setting of inflammatory bowel disease (Crohn's disease). Recommend clinical correlation. 2. Mild left hydronephrosis without hydroureter. Findings can be seen in the setting of mild chronic left ureteropelvic junction obstruction. Recommend clinical correlation. Lab Data Lab results reviewed: Yes I reviewed the patient's lab results. HPI General Mode of arrival: EMS . Date/Time Provider Initiated Documentation: 05/11/23 15:22 . Limitations to Documentation: no limitations . Information obtained by: patient and RN notes reviewed . History of Present Illness 62 year old F presents to the emergency department with the chief complaint of Nausea vomiting diarrhea, left lower quadrant abdominal pain, described as moderate, Quality is described as aching, and is localized to the abdomen. Patient reports no radiation. Patient started experiencing this hour(s) (2) and it has been constant. No relieving factors improve symptom(s), No exacerbating factors reported . Patient notes fever/chills, loss of appetite and nausea/vomiting. Patient did receive the following treatments prior to arrival, none Related Data Home Medications Medication Instructions Recorded Confirmed aspirin 81 mg chewable tablet 81 mg PO HS 01/08/16 11/12/22 (Aspirin Low-Strength) levothyroxine 88 mcg tablet 75 mcg PO DAILY 01/08/16 11/12/22 (Synthroid) nitroglycerin 0.4 mg sublingual 0.4 mg sublingual PRN PRN 02/05/16 11/12/22 tablet (Nitrostat) rosuvastatin 5 mg tablet (Crestor) 5 mg PO DAILY 05/14/19 11/12/22 famotidine 40 mg tablet 40 mg PO BID 10/08/21 11/12/22 elderberry fruit 200 mg capsule 200 mg PO DAILY 10/16/21 11/12/22 amlodipine 5 mg tablet 2.5 mg PO DAILY 10/28/22 11/12/22 loratadine 10 mg tablet (Allergy 10 mg PO DAILY 10/28/22 11/12/22 Relief (loratadine)) ondansetron 8 mg disintegrating 8 mg PO Q8H PRN nausea and 10/28/22 11/12/22 tablet vomiting #4 tabs scopolamine base 1 mg over 3 days 1 patch transdermal Q3D PRN nausea 10/28/22 11/12/22 transdermal patch and vomiting #1 ea fluticasone propionate 50 1 spray intranasal DAILY 11/11/22 11/12/22 mcg/actuation nasal spray,suspension ibuprofen 200 mg capsule 200 mg PO Q6H PRN 11/11/22 11/12/22 Previous Rx's Medication Instructions Recorded ondansetron 8 mg disintegrating 8 mg PO Q8H PRN nausea and 10/28/22 tablet vomiting #4 tabs scopolamine base 1 mg over 3 days 1 patch transdermal Q3D PRN nausea 10/28/22 transdermal patch and vomiting #1 ea Allergies Allergy/AdvReac Type Severity Reaction Status Date / Time simvastatin AdvReac muscle Verified 11/12/22 06:40 aches General Stated Complaint: Abd Prob DAVONTE: 3 Review of Systems Constitutional Constitutional: Reports chills, Reports fever(s), Reports malaise and Reports poor appetite Cardiovascular Cardiovascular: Denies chest pain and Denies dyspnea Respiratory Respiratory: Denies cough and Denies dyspnea Gastrointestinal Gastrointestinal: Reports as per HPI, Reports abdominal pain, Denies melena, Denies hematochezia, Denies change in bowel habits, Denies constipation, Reports diarrhea, Reports nausea and Reports vomiting Genitourinary Genitourinary: Denies hematuria, Denies urinary incontinence, Denies urinary hesitancy and Denies urinary urgency Musculoskeletal Musculoskeletal: Reports muscle cramps, Denies numbness and Denies tingling Integumentary/Breasts Skin/Breast: Denies rash Neurologic Neurologic: Denies numbness and Denies tingling PFSH All Active Problems (Updated 05/11/23 @ 18:50 by Lauro Choe NP) Gastroenteritis (Acute) Familial adenomatous polyposis (Acute) FH: breast cancer (Acute) Colon polyps (Acute) History of colon polyps (Acute) Tubular adenoma (Acute ~05/2019) x14 Dr. Goldy Echavarria, repeat 1 year Medical History Adjustment disorder CAD (coronary artery disease) GERD (gastroesophageal reflux disease) Hypertension Hypothyroidism [place] (myocardial infarction) 2010 - cath showed no disease. Was told it was a coronary artery spasm F/U with at [facility] with Dr. Carlson and Dr. Zaragoza, last seen 2019 Tubular adenoma of colon Surgical History heart cath 2009 History of colonoscopy 06/04/19 Dr Lupe Echavarria, [facility], 14 polyps, tubular adenomas, repeat in one year. Social History Smoking/Tobacco Use Status: Former Tobacco Use Quit Date: 10/20/84 Smoking risk assessment performed?: Yes Alcohol Intake: former Drug use: Never Substance use type: does not use Do you feel safe at home: Yes Do you feel safe in your relationship?: Yes Exam Const General: cooperative Orientation: alert, awake and oriented x3 Resp Effort & Inspection: normal respiratory effort and able to speak in complete sentences Auscultation: clear to auscultation bilaterally Cardio Rate: tachycardic Rhythm: regular rhythm Heart Sounds: S1 normal and S2 normal GI Palpation: soft, no hepatosplenomegaly, not firm, no guarding, no masses, no pulsatile masses, not rigid, no splenomegaly and nontender Auscultation: hyperactive bowel sounds Back/Spine/Pelvis Back: no CVA tenderness Neuro General: patient alert, patient awake, patient oriented x3, gait normal and moves all extremities Course Vital Signs Vital signs: Vital Signs Temperature 37.1 C 05/11/23 15:14 Pulse 105 H 05/11/23 15:14 Respiratory Rate 24 05/11/23 15:14 Blood Pressure 122/70 05/11/23 15:14 Pulse Oximetry 96 05/11/23 15:14 Temperature 37.1 C 05/11/23 15:14 Pulse 97 H 05/11/23 15:16 Pulse 99 H 05/11/23 15:20 Respiratory Rate 27 H 05/11/23 15:20 Respiratory Effort Normal, Non-Labored 05/11/23 15:19 Blood Pressure 122/70 05/11/23 15:16 Blood Pressure Mean 83 05/11/23 15:16 Blood Pressure Position Supine 05/11/23 15:14 Pulse Oximetry 92 05/11/23 15:20 Oxygen Delivery Method Room Air 05/11/23 15:14 Oxygen Flow Rate 0 05/11/23 15:14
[2023-05-11 15:53] LABS: Abs Immature Grans 0.02 10^3/uL (0.0-0.06); Absolute Basophil Count 0.04 10^3/uL (0.0-0.2); Absolute Eosinophil Count 0.12 10^3/uL (0.0-0.7); Absolute Lymphocyte Count 0.35 10^3/uL (1.2-3.4); Absolute Monocyte Count 0.55 10^3/uL (0.1-0.8); Absolute Neutrophil Count 8.61 10^3/uL (1.2-6.7); Basophils % 0.4; Eosinophils % 1.2; HGB 13.3 g/dL (11.2-15.7); Immature Grans % 0.2; Lymphocytes % 3.6; MCHC 32.4 % (32.0-36.0); MCV 89 fL (80-95); MPV 10.8 fL (8.0-11.0); Monocytes % 5.7; Neutrophils % 88.9; Platelet Count 303 10^3/uL (130-400); RBC 4.59 10^6/uL (3.93-5.22); RDW 13.3 % (11.7-14.6); WBC 9.69 10^3/uL (4.4-10.8)
[2023-05-11 16:08] LABS: ALT 28 U/L (14-59); AST 21 U/L (15-37); Albumin 4.1 g/dL (3.4-5.0); Alkaline Phosphatase 73 U/L (46-116); Anion Gap 11.4 mmol/L (3-11); BUN 21 mg/dL (7-18); Bilirubin, Total 0.6 mg/dL (0.2-1.0); CO2 24.6 mmol/L (21.0-32.0); CREATININE 0.8 mg/dL (0.55-1.02); Calcium 8.9 mg/dL (8.5-10.1); Chloride 103 mmol/L (98-107); Glucose 105 mg/dL (74-106); Lipase 31 U/L (16-77); Magnesium 1.8 mg/dL (1.8-2.4); Potassium 3.9 mmol/L (3.5-5.1); Sodium 139 mmol/L (136-145); Total Protein 7.8 g/dL (6.4-8.2)
--- NOTE | 2023-05-11 16:15 | DI.CT_ITS ---
Exam(s) CT ABDOMEN PELVIS W EXAM: CT ABDOMEN PELVIS W CLINICAL HISTORY: n/v LLQ pain TECHNIQUE: Imaging Protocol: Axial computed tomography images with coronal and sagittal reformatted images were created and reviewed CONTRAST MATERIAL: Intravenous: Omnipaque 350 Contrast volume:100 mL Oral: No COMPARISON: No exams were available for comparison FINDINGS: ABDOMEN: Lung Bases: Normal where visualized. Liver: Normal density. No measurable mass. Portal, Superior Mesenteric, and Splenic Veins: Unremarkable. Gallbladder and Biliary Tract: No radiodense calculus or dilation. Pancreas: Normal density, no abnormal calcifications or inflammatory process. Spleen: Normal. Adrenals: No masses seen. Kidneys: Normal size, contour and axis. No radiodense stones. There is mild dilatation of the proxim al left ureter. No masses seen. Abdominal Aorta: Abdominal portion non-dilated. Atherosclerosis. Bowel: No evidence of obstruction. There is mild bowel wall thickening seen in loops of bowel in the central and right abdomen. This may represent enteritis. Appendix is unremarkable. Peritoneal Cavity: No ascites, collection or mesenteric inflammatory response. No free air. Lymph Nodes: Within normal limits. Bones: Within normal limits for the patient's age. Soft Tissues: Unremarkable. PELVIS: Bladder: Symmetric distention, no gross wall thickening. Reproductive Organs: Unremarkable as visualized. Lymph Nodes: Within normal limits. Bones: Within normal limits for the patient's age. IMPRESSION: Findings suspicious for mild enteritis. Please correlate clinically. RADIATION DOSE DELIVERED: 835.94mGy.cm Total DLP DATA REPOSITORY: All CT scans at this facility are submitted to the National Radiology Data Registry (NRDR) Dose Index Registry (DIR) with the [employer] (ACR). RADIATION OPTIMIZATION: All CT scans at this facility use at least one of these dose optimization te chniques: automated exposure control; mA and/or kV adjustment per patient size (includes targeted exa ms where dose is matched to clinical indication); or iterative reconstruction.
[2023-05-11] MEDS: Omnipaque 350 MG/ML 100 ML BTL IJ (16:53)
[2023-05-11] MEDS: Normal Saline - Diluent 50 ML VIAL IJ (16:53)
[2023-05-11 17:38] LABS: Bilirubin Negative (Negative); Blood Negative (Negative); Clarity Clear (Clear); Glucose Negative (Negative); Ketones Negative (Negative); Leukocyte Esterase Negative (Negative); Nitrite Negative (Negative); Urobilinogen 0.2 mg/dL (Up to 0.2); pH 5.5 (5-8)
--- NOTE | 2023-05-11 17:49 | DI.VRAD_ITS ---
PROCEDURE INFORMATION: Exam: CT Abdomen And Pelvis With Contrast Exam date and time: 05/11/2023 5:02 PM Age: 62 years old Clinical indication: Other: N/v llq pain TECHNIQUE: Imaging protocol: Computed tomography of the abdomen and pelvis with contrast. Contrast material: 350; Contrast volume: 100 ml; Contrast route: INTRAVENOUS (IV); COMPARISON: No relevant prior studies available. FINDINGS: Lungs: There are a few regions of minimal scarring/atelectasis within the lung bases. Liver: Normal. No mass. Gallbladder and bile ducts: Normal. No calcified stones. No ductal dilation. Pancreas: The pancreas is moderately atrophic but appears otherwise unremarkable without focal lesion or evidence of acute inflammation. Spleen: Normal. No splenomegaly. Adrenal glands: Normal. No mass. Kidneys and ureters: No renal or ureteral stones are identified. There is mild left hydronephrosis without hydroureter. Both kidneys enhance normally and symmetrically. Stomach and bowel: There may be mild wall thickening and hyperenhancement of the terminal ileum adjacent to the ileocecal valve, as seen on axial images 40-41, series 4 and sagittal image 79, series 7 which could represent mild enteritis. There are multiple prominent nondilated fluid-filled loops of ileum proximal to this which could reflect mild ileus. The colon appears normal. There is no evidence for bowel obstruction. Appendix: The appendix is well visualized and appears normal. Intraperitoneal space: There is no evidence of free intraperitoneal fluid. There is no free intraperitoneal air. Vasculature: The aorta and iliac arteries demonstrate moderate atherosclerotic calcification without aneurysm formation. Lymph nodes: Unremarkable. No enlarged lymph nodes. Urinary bladder: No bladder stones are identified. Reproductive: Unremarkable as visualized. Bones/joints: There is kddr-[id number]-nlalmotw facet arthrosis of the lower lumbar spine. There is multilevel mild spondylosis of the lower thoracic and lumbar spine. No acute fractures or subluxations are identified. Soft tissues: Unremarkable. IMPRESSION: 1. Possible mild terminal ileitis adjacent to the ileocecal valve, as described above. This could be infectious in etiology but can also be seen in the setting of inflammatory bowel disease (Crohn's disease). Recommend clinical correlation. 2. Mild left hydronephrosis without hydroureter. Findings can be seen in the setting of mild chronic left ureteropelvic junction obstruction. Recommend clinical correlation. Dictated and Authenticated by: Brian June MD. Ordering:JASE Restrepo MD
[2023-05-11] MEDS: Ondansetron O.D.T. 4 MG TABEF, 3 TABS/BTL PO (18:59)
== END 2023-05-11 19:00 | disposition home or self-care (01) ==
PROVIDERS: Emergency Provider Nurse Practitioner Family; PCP Nurse Practitioner
DX: K52.9 Noninfective gastroenteritis and colitis, unspecified (principal); I25.10 Atherosclerotic heart disease of native coronary artery without angina pectoris; I25.2 Old myocardial infarction; I10 Essential (primary) hypertension; E78.5 Hyperlipidemia, unspecified; Z79.82 Long term (current) use of aspirin; Z87.891 Personal history of nicotine dependence
CPT/HCPCS: 36415; 80053; 83690; 96360; 96361; 99285; 74177; 81003; 83735; 85025; 99283; J2405; J3490

== ENCOUNTER 2023-10-30 12:08 | Day surgery (SDC) | payer BC, SELFPAY ==
--- NOTE | 2023-10-30 09:33 | W.PM.DSUDISC ---
Date of service: 10/30/23 Time of Service: 09:34 Discharge Plan Disposition Patient Disposition: Home Condition: Good Discharge Details Reason For Visit: screening colonoscopy Attending Provider: Dion Virgen Primary Care Provider: Antoinette Santillan Home Meds and New Rx's Prescriptions: Continued famotidine 40 mg tablet 40 mg PO BID rosuvastatin [Crestor] 5 mg tablet 5 mg PO DAILY loratadine [Allergy Relief (loratadine)] 10 mg tablet 10 mg PO DAILY levothyroxine [Synthroid] 88 MCG tablet 75 mcg PO DAILY aspirin [Aspirin Low-Strength] 81 MG tablet,chewable 81 mg PO HS amlodipine 5 mg tablet 2.5 mg PO DAILY ondansetron HCl 8 mg tablet 8 mg PO Q12H Qty: 3 0RF scopolamine base 1 mg over 3 days patch 3 day 1 patch transdermal Q3D PRN (Reason: nausea and vomiting) Qty: 1 0RF Rx Instructions: prior to starting Colonoscopy prep nitroglycerin [Nitrostat] 0.4 MG tablet, sublingual 0.4 mg Sublingual PRN PRN elderberry fruit 200 mg Capsule 200 mg PO DAILY ibuprofen 200 mg Capsule 200 mg PO Q6H PRN diphenhydramine HCl [Benadryl] 25 mg capsule 50 mg PO QHS Discontinued polyethylene glycol 3350 17 gram/dose powder 238 g PO ONCE Qty: 238 0RF Rx Instructions: take per colonoscopy instructions bisacodyl 5 mg tablet,delayed release (DR/EC) See Rx Instructions .ROUTE .COMPLEX Qty: 4 0RF Dose Instruction: take by mouth per colonoscopy instructions Rx Instructions: take by mouth per colonoscopy instructions Discharge Instructions Additional Instructions: Maranda, we were able to complete your colonoscopy today without any difficulty. In total, I removed 10 polyps. Some of these may not be true polyps, but I will send them off to the pathologist to be sure generally, it seems like you continue to make progress in terms of clearance of the colon. For now, we will plan on another colonoscopy in 1 year. If anything turns up in the pathology report that is unexpected, I will certainly let you know. 1. If tolerated, consume a soft, low fiber diet for 1-2 days. [address] Do not drive, drink alcohol, operate machinery, make critical decisions, or do activities that require coordination or balance for 24 hours. 3. Because air was put into your colon during the procedure, expelling air from your rectum (passing gas or farting) is normal. 4. You may not have a bowel movement for 1-3 days because of the colonoscopy prep. This is normal. 5. Go directly to the emergency room if you notice any of the following: Develop chills (warm to touch), or if you have a thermometer and your temperature is above 101 Difficulty breathing or difficultly swallowing Persistent vomiting Severe abdominal pain, other than gas cramps Severe chest pain Black, tarry stools Any bleeding ? exceeding one tablespoon 6. Call your physician if the site where your intravenous was started becomes red, swollen, painful, and warm to touch. 7. Your physician has reviewed your pre-procedure medications. Please continue to take those medications as previously ordered. You will be given specific information/education regarding any changes to your medications before leaving. Activity:: Activity as Tolerated Diet:: As Tolerated Discharge Orders Discharge Orders: Discharge Order (Routine); Ordered 10/30/23 Ordered By: Dion Virgen DS: Diagnosis Discharge Diagnosis (1) Familial adenomatous polyposis: Status: Acute Asessment and Plan: Follow-up on polypectomy results
--- NOTE | 2023-10-30 09:35 | COLE_ITS ---
Date of service: 10/30/23 Time of Service: 14:54 Colonoscopy Report Date of procedure: 10/30/23 Pre-op diagnosis general: screening colonoscopy Post-op diagnosis procedure note: other (Colorectal polyps) Procedure: Colonoscopy with polypectomy Surgeon: Dion Virgen Anesthesia Type: General:No Airway Estimated blood loss (mL): 25 Pathology: other (Multiple colon and rectal polyps) Complications: None Disposition: same day Indications: Tiff is a 63-year-old woman with familial adenomatous polyposis. She is here for her next screening colonoscopy Prep: Miralax/Dulcolax Procedure Start Time: 13:55 Procedure End Time: 14:29 Retraction Time: 23 Findings: 10 polyps ranging in size from 0.25 cm to 0.5 cm. Procedure Description: After the induction of monitored anesthetic care, and with the patient in left lateral decubitus position, I began by performing an external anorectal exam.? Perineum and skin were normal, as was the anal verge.? There was no evidence of external hemorrhoids.? Next, I performed a digital rectal exam.? I did not appreciate any abnormal findings.? Next, I advanced a colonoscope into the rectal vault.? I performed retroflexion.? This was normal s.? Using insufflation, I then advanced the colonoscope beyond the rectal folds and into the sigmoid colon before advancing towards the cecum.? The scope was noted to be in the cecum by identification of the ileocecal valve and appendiceal orifice.? I then began withdrawing the colonoscope using repeated irrigation as necessary for full evaluation of the colonic mucosa. In total, I found 10 polyps. Majority of these were less than 0.25 cm. 2 of them were about 0.5 cm. All of the polyps were flat, and all were removed with cold forceps. There was minimal bleeding at any of the sites. Once the scope was withdrawn to the level of the rectum, great care was taken to examine portions of the rectal folds.? Two of the polyps mentioned above were found at 20 cm, just at the upper portion of the rectal vault. Finally, the scope was withdrawn and the patient was brought to the same-day surgery recovery unit as the anesthetic wore off. ?The findings and instructions were shared with the patient prior to discharge. [place] Bowel Prep [place] Bowel Prep Right Colon: 3 Left Colon: 3 Transverse Colon: 3 Total Score: 9
[2023-10-30 12:25] VITALS: BP 125/71; PULSE 89; RESP 18; TEMP 36.5; O2SAT 99
[2023-10-30] MEDS: Lactated Ringers 1,000 ML 80 ML IV (12:58)
--- NOTE | 2023-10-30 13:37 | ANES.PREOP_ITS ---
General Info Date of Service Date Performed: 10/30/23 Height: 5 ft 4 in Weight: 67.3 kg Body Mass Index (BMI): 25.4 Surgical Procedure: Operation Date: 10/30/23 13:50 Proposed Procedure Side Surgeon kali Virgen MD Meds Allergies and Home Medications Allergies Allergy/AdvReac Type Severity Reaction Status Date / Time No Known Drug Allergies Allergy Verified 10/29/23 10:56 Home Medication Medication Instructions Recorded aspirin 81 mg chewable tablet 81 mg PO HS 01/08/16 (Aspirin Low-Strength) levothyroxine 88 mcg tablet 75 mcg PO DAILY 01/08/16 (Synthroid) nitroglycerin 0.4 mg sublingual 0.4 mg sublingual PRN PRN 02/05/16 tablet (Nitrostat) rosuvastatin 5 mg tablet (Crestor) 5 mg PO DAILY 05/14/19 famotidine 40 mg tablet 40 mg PO BID 10/08/21 elderberry fruit 200 mg capsule 200 mg PO DAILY 10/16/21 amlodipine 5 mg tablet 2.5 mg PO DAILY 10/28/22 loratadine 10 mg tablet (Allergy 10 mg PO DAILY 10/28/22 Relief (loratadine)) ibuprofen 200 mg capsule 200 mg PO Q6H PRN 11/11/22 ondansetron HCl 8 mg tablet 8 mg PO Q12H #3 tabs 10/23/23 scopolamine base 1 mg over 3 days 1 patch transdermal Q3D PRN nausea 10/23/23 transdermal patch and vomiting #1 ea diphenhydramine HCl 25 mg capsule 50 mg PO QHS 10/30/23 (Benadryl) Current Visit Medications: Current Medications Generic Name Dose Route Start Last Admin Trade Name Freq PRN Reason Stop Dose Admin Hyoscyamine Sulfate 0.125 mg 10/30/23 09:47 Hyoscyamine 0.125 Mg Sl/Oral/Chew SL 11/29/23 09:46 DIRECTED PRN Ringer's Solution 1,000 mls @ 80 mls/hr 10/30/23 06:00 10/30/23 12:58 IV 11/28/23 23:59 80 mls/hr INFUSION DE Administration IV Miscellaneous Supplies 1 each 10/30/23 06:00 Iv Access IV 11/28/23 23:59 DIRECTED DE Ondansetron HCl 4 mg 10/30/23 09:47 Ondansetron 4 Mg/2 Ml Vial IVP 11/29/23 09:46 Q4H PRN PRN Nausea / Vomiting Sodium Chloride 0 ml 10/30/23 06:00 Normal Saline Flush 10 Ml Syr IV 11/28/23 23:59 PRN PRN Sodium Chloride 0 ml 10/30/23 06:00 Normal Saline 10 Ml Vial IJ 11/28/23 23:59 DIRECTED PRN Sterile Water 0 ml 10/30/23 06:00 Water,Injection,Sterile 10 Ml Vial IJ 11/28/23 23:59 DIRECTED PRN PFSH Active Problems Active Problems: Problem Status Onset Code Familial adenomatous polyposis D12.6 FH: breast cancer Z80.3 Colon polyps K63.5 History of colon polyps Z86.010 Tubular adenoma ~05/2019 D36.9 Medical History Medical History Adjustment disorder CAD (coronary artery disease) GERD (gastroesophageal reflux disease) Hypertension Hypothyroidism [place] (myocardial infarction) 2009 - cath showed no disease. Was told it was a coronary artery spasm F/U with at [facility] with [place]. Carlson and Dr. Zaragoza, last seen 2019 Tubular adenoma of colon Medical History Comments:: Per pt. states her her mother had a colonoscopy and was sick for 2 weeks, i can't remember why Surgical History Surgical History heart cath 2009 History of colonoscopy 06/04/19 Dr Lupe Echavarria, [facility], 14 polyps, tubular adenomas, repeat in one year. Tobacco Smoking/Tobacco Use Status: Former Tobacco Use Alcohol Alcohol Intake: former Substance Use Substance use: Never Substance use type: does not use Vital Signs and Lab Results Vital Signs Most Recent Vital Signs in EMR: Most Recent Vital Signs Temp Pulse Resp BP Pulse Ox 36.5 C 89 18 125/71 99 10/30/23 12:25 10/30/23 12:25 10/30/23 12:25 10/30/23 12:25 10/30/23 12:25 Lab Results Blood Type / Crossmatch: No Data to Display Complete Blood Count: No Data to Display Complete Metabolic Panel: No Data to Display Liver Function Panel: No Data to Display Coagulation Panel: No Data to Display Cardiac Panel: No Data to Display Arterial Blood Gas: No Data to Display Venous Blood Gas: No Data to Display Pancreas Panel: No Data to Display Thyroid Panel: No Data to Display Infectious Disease: No Data to Display Blood Cultures: No Data to Display Toxicology Panel: No Data to Display Imaging and Studies Imaging and Studies Study information below may be from another EMR and interpreted by another provider. Please see original notes in EMR for more complete details. Echocardiogram Summary: 12/23/09: EF 65%, normal valves. Cardiac Catheterization Summary: 12/23/09: [facility]: Normal Arteries Anesthesia Assessment and Plan Anesthesia History Personal History: No History of Anesthesia Complications Family History: No Family History of Anesthesia Complications Exercise Tolerance Exercise Tolerance: Metabolic Equivalents>4 Pertinent Negatives Pertinent Negatives: No Symptoms of GERD and No Major Pulmonary Symptoms or Complaints Cardiac & Pulmonary Exam Cardiac Exam: Normal S1/S2 Heart Sounds Pulmonary Exam: Clear Bilateral Breath Sounds Implantable Cardiac Device Does patient have a Pacemaker or an ICD?: No Airway Exam Known Difficult Airway: No Mallampati Class: 2 Mouth Opening: Narrow (< 3cm) Thyromental Distance: Greater than 3 cm Neck Range of Motion: Full ROM Neck Circumference: Normal Teeth Condition: Normal Dentition ASA Classification ASA Score: ASA 3 Emergency Case?: No NPO Status NPO Status: NPO Clears >2 hours, Solids >8 hours Anesthesia Plan Resuscitation Status: Full Code Anesthesia Technique: General Anesthesia Airway Planned: Natural Airway Monitors Used: Standard Monitors
[2023-10-30 13:41] VITALS: BMI 25.4
--- NOTE | 2023-10-30 14:10 | BOWEL_PTH ---
PATIENT: Tiff Britt LOC: [facility] U#:[id number] AGE/SX: 63/F ROOM: RE10/30/[address]: Dion Virgen MD : 1960 BED: DIS: 10/30/2023 SPEC #: [id number] RECD: 10/30/23 16:24 STATUS: TYRESE RE #: [id number] MAGED: 10/30/23 14:[address]: Dion Virgen DEPT: Surgical Specimen RECD BY: Maranda Nielsen ENTERED: 10/30/23 16:26 SP TYPE: Bowel OTHR DR: Antoinette Santillan Tissues: 1 - BIOPSY BOWEL 2 - BIOPSY BOWEL 3 - BIOPSY BOWEL 4 - BIOPSY BOWEL 5 - BIOPSY BOWEL 6 - BIOPSY BOWEL 7 - BIOPSY BOWEL 8 - BIOPSY BOWEL Procedures: GROSS AND MICRO LEVEL 4 Comments: [id number]
[2023-10-30 14:38] VITALS: BP 88/64; PULSE 73; RESP 16; TEMP 36.2; O2SAT 97
--- NOTE | 2023-10-30 14:43 | W.ANESPOSTOP ---
Postoperative Evaluation Date, Time and Location Date Performed: 10/30/23 Time Performed: 14:43 Patient Location: Day Surgery Unit Vital Signs Most Recent Imported Vital Signs: Most Recent Vital Signs Temp Pulse Resp BP Pulse Ox 36.2 C L 73 16 88/64 L 97 10/30/23 14:38 10/30/23 14:38 10/30/23 14:38 10/30/23 14:38 10/30/23 14:38 Pain Score Most Recent Pain Score: Most Recent Pain Score Pain Level 0 10/30/23 14:38 Assessment Mental Status: Awake (Alert & Oriented to Patient Baseline) Airway and Respiratory Function: Patent airway with normal (patient baseline) respiratory exam Cardiovascular Function: Hemodynamically Stable Hydration Status: Adequately Hydrated Nausea & Vomiting: No Nausea or Vomiting Pain: Pt. Denies Any Pain Peripheral Nerve Block: Patient did not receive a nerve block
[2023-10-30 14:44] VITALS: BP 107/64; PULSE 50; RESP 14; O2SAT 100
== END 2023-10-30 15:25 | disposition home or self-care (01) ==
LOC: SUR 12:08
PROVIDERS: PCP Nurse Practitioner; Visit Provider Surgery
PROC: 0DJD8ZZ Inspection of Lower Intestinal Tract, Via Natural or Artificial Opening Endoscopic (ICD-10-PCS; CPT 45378; principal; 2023-10-30 13:45)
DX: Z12.11 Encounter for screening for malignant neoplasm of colon (principal); D12.3 Benign neoplasm of transverse colon; Z86.010 Personal history of colon polyps; D12.5 Benign neoplasm of sigmoid colon
CPT/HCPCS: 45380; 88305; J2704

== ENCOUNTER 2024-02-09 09:13 | Outpatient (CLI) | payer BC, SELFPAY ==
--- NOTE | 2024-02-09 09:00 | DI.RAD_ITS ---
Exam(s) XR THUMB LT EXAM: XR THUMB LT EXAM DATE/TIME: CLINICAL HISTORY: pain. TECHNIQUE: 2D digital imaging was performed of the left finger. Three views were obtained. PA/AP, oblique, and lateral views were obtained. COMPARISON: None. FINDINGS: BONES: No acute fracture is present. No bony destructive lesion is seen. JOINTS: No dislocation is present. There are degenerative changes seen in the thumb. There osteophy caroline seen at the DIP joint. There is joint space narrowing seen at the 1st CMC joint. SOFT TISSUE: Normal. IMPRESSION: Mild degenerative changes of the thumb. DATA REPOSITORY: RADIATION DOSE DELIVERED:
== END 2024-02-09 09:14 | disposition home or self-care (01) ==
LOC: DIORS 09:13
PROVIDERS: PCP Nurse Practitioner; Referring Provider Nurse Practitioner; Visit Provider Physician Assistant
DX: M79.645 Pain in left finger(s) (principal)
CPT/HCPCS: 73140

== ENCOUNTER 2024-11-01 09:04 | Day surgery (SDC) | payer OTHER, SELFPAY ==
[2024-11-01 06:29] VITALS: BP 114/74; PULSE 76; RESP 20; TEMP 36.1; O2SAT 96
[2024-11-01] MEDS: Lactated Ringers 1,000 ML 80 ML IV (06:45)
--- NOTE | 2024-11-01 07:09 | W.ANESPRE ---
General Info Date of Service Date Performed: 11/01/24 Height: 5 ft 4 in Weight: 64.1 kg Body Mass Index (BMI): 24.3 Surgical Procedure: Operation Date: 11/01/24 07:35 Proposed Procedure Side Surgeon p Colonoscopy Dion Virgen MD Actual Procedure Side Surgeon p Colonoscopy Not Applicable Dion Virgen MD Meds Allergies and Home Medications Allergies Allergy/AdvReac Type Severity Reaction Status Date / Time No Known Drug Allergies Allergy Other (See Verified 11/01/24 06:26 Comment) Home Medication ?Medication ?Instructions ?Recorded aspirin 81 mg chewable tablet 81 mg PO HS 01/08/16 (Aspirin Low-Strength) levothyroxine 88 mcg tablet 75 mcg PO DAILY 01/08/16 (Synthroid) nitroglycerin 0.4 mg sublingual 0.4 mg sublingual PRN PRN 02/05/16 tablet (Nitrostat) rosuvastatin 5 mg tablet (Crestor) 5 mg PO DAILY 05/14/19 famotidine 40 mg tablet 40 mg PO BID 10/08/21 elderberry fruit 200 mg capsule 200 mg PO DAILY 10/16/21 amlodipine 5 mg tablet 2.5 mg PO DAILY 10/28/22 loratadine 10 mg tablet (Allergy 10 mg PO DAILY 10/28/22 Relief (loratadine)) ibuprofen 200 mg capsule 200 mg PO Q6H PRN 11/11/22 diphenhydramine HCl 25 mg capsule 50 mg PO QHS 10/30/23 (Benadryl) bisacodyl 5 mg tablet,delayed 5 mg PO ONCE #4 tabs 09/23/24 release (Dulcolax (bisacodyl)) polyethylene glycol 3350 17 17 g PO ONCE #238 grams 09/23/24 gram/dose oral powder ondansetron 8 mg disintegrating 8 mg PO Q8H PRN nausea and 09/24/24 tablet vomiting #4 tabs scopolamine base 1 mg over 3 days 1 patch transdermal Q3D PRN nausea 09/24/24 transdermal patch and vomiting #1 ea Current Visit Medications: Current Medications Generic Name Dose Route Start Last Admin Trade Name Freq PRN Reason Stop Dose Admin Ringer's Solution 1,000 mls @ 80 mls/hr 11/01/24 06:15 11/01/24 06:45 IV 12/01/24 06:14 80 mls/hr INFUSION DE Administration IV Miscellaneous Supplies 1 each 11/01/24 06:00 Iv Access IV 11/01/24 23:59 DIRECTED DE Sodium Chloride 0 ml 11/01/24 06:00 Normal Saline Flush 10 Ml Syr IV 11/01/24 23:59 PRN PRN Sodium Chloride 0 ml 11/01/24 06:00 Normal Saline 10 Ml Vial IJ 11/01/24 23:59 DIRECTED PRN Sterile Water 0 ml 11/01/24 06:00 Water,Injection,Sterile 10 Ml Vial IJ 11/01/24 23:59 DIRECTED PRN PFSH Active Problems Active Problems: Problem Status Onset Code Encounter for screening colonoscopy Acute Z12.11 Arthritis of carpometacarpal (CMC) joint of left thumb Acute M18.12 Familial adenomatous polyposis Acute D12.6 FH: breast cancer Acute Z80.3 Colon polyps Acute K63.5 History of colon polyps Acute Z86.010 Tubular adenoma Acute ~05/2019 D36.9 Medical History Medical History Adjustment disorder Tubular adenoma of colon GERD (gastroesophageal reflux disease) CAD (coronary artery disease) Hypertension [place] (myocardial infarction) 2010 - cath showed no disease. Was told it was a coronary artery spasm w/NSTEMI F/U with at [facility] with Dr. Carlson and Dr. Zaragoza, last seen 2018 Hypothyroidism Medical History Comments:: Per pt. states her her mother had a colonoscopy and was sick for 2 weeks, i can't remember why Surgical History Surgical History History of colonoscopy (~10/2023) 06/04/19 Dr Lupe Echavarria, [facility], 14 polyps, tubular adenomas, repeat in one year. heart cath 2009 Tobacco Smoking/Tobacco Use Status: Former Tobacco Use Alcohol Alcohol Intake: current Alcohol intake frequency: holidays/special occasions only Alcohol type: beer Substance Use Substance use: Never Substance use type: does not use Vital Signs and Lab Results Vital Signs Most Recent Vital Signs in EMR: Most Recent Vital Signs Temp Pulse Resp BP Pulse Ox 36.1 C L 76 20 114/74 96 11/01/24 06:29 11/01/24 06:29 11/01/24 06:29 11/01/24 06:29 11/01/24 06:29 Lab Results Blood Type / Crossmatch: No Data to Display Complete Blood Count: No Data to Display Complete Metabolic Panel: No Data to Display Liver Function Panel: No Data to Display Coagulation Panel: No Data to Display Cardiac Panel: No Data to Display Arterial Blood Gas: No Data to Display Venous Blood Gas: No Data to Display Pancreas Panel: No Data to Display Thyroid Panel: No Data to Display Infectious Disease: No Data to Display Blood Cultures: No Data to Display Toxicology Panel: No Data to Display Imaging and Studies Imaging and Studies Study information below may be from another EMR and interpreted by another provider. Please see original notes in EMR for more complete details. Echocardiogram Summary: 12/23/09: EF 65%, normal valves. Cardiac Catheterization Summary: 12/23/09: [facility]: Normal Arteries Anesthesia Assessment and Plan Anesthesia History Personal History: No History of Anesthesia Complications Family History: Family History Unknown Exercise Tolerance Exercise Tolerance: Metabolic Equivalents>4 Pertinent Negatives Pertinent Negatives: No Major Pulmonary Symptoms or Complaints Cardiac & Pulmonary Exam Cardiac Exam: Normal S1/S2 Heart Sounds Pulmonary Exam: Clear Bilateral Breath Sounds Implantable Cardiac Device Does patient have a Pacemaker or an ICD?: No Airway Exam Known Difficult Airway: No Mallampati Class: 2 Mouth Opening: Narrow (< 3cm) Thyromental Distance: Greater than 3 cm Neck Range of Motion: Full ROM Neck Circumference: Normal Teeth Condition: Normal Dentition ASA Classification ASA Score: ASA 3 Emergency Case?: No NPO Status NPO Status: NPO Clears >2 hours, Solids >8 hours Anesthesia Plan Resuscitation Status: Full Code Anesthesia Technique: General Anesthesia Airway Planned: Natural Airway Monitors Used: Standard Monitors
[2024-11-01 07:44] VITALS: BMI 24.3
--- NOTE | 2024-11-01 07:51 | BOWEL_PTH ---
PATIENT: Tiff Britt LOC: [facility] U#:[id number] AGE/SX: 64/F ROOM: RE11/01/[address]: Dion Virgne MD : 1960 BED: DIS: 11/01/2024 SPEC #: [id number] RECD: 11/01/24 12:52 STATUS: TYRESE RE #: [id number] MAGED: 11/01/24 07:[address]: Dion Virgen DEPT: Surgical Specimen RECD BY: Maranda Nielsen ENTERED: 11/01/24 12:54 SP TYPE: Bowel OTHR DR: Antoinette Santillan Tissues: 1 - BIOPSY BOWEL 2 - BIOPSY BOWEL 3 - BIOPSY BOWEL 4 - BIOPSY BOWEL 5 - BIOPSY BOWEL 6 - BIOPSY BOWEL 7 - BIOPSY BOWEL 8 - BIOPSY BOWEL Procedures: GROSS AND MICRO LEVEL 4 Comments: [id number]
[2024-11-01 08:15] VITALS: BP 80/70; PULSE 82; RESP 18; TEMP 36.6; O2SAT 100
--- NOTE | 2024-11-01 08:31 | W.ANESPOSTOP ---
Postoperative Evaluation Date, Time and Location Date Performed: 11/01/24 Time Performed: 08:31 Patient Location: Day Surgery Unit Vital Signs Most Recent Imported Vital Signs: Most Recent Vital Signs Temp Pulse Resp BP Pulse Ox 36.6 C 82 18 80/70 L 100 11/01/24 08:15 11/01/24 08:15 11/01/24 08:15 11/01/24 08:15 11/01/24 08:15 Pain Score Most Recent Pain Score: Most Recent Pain Score Pain Level 0 11/01/24 08:15 Assessment Mental Status: Awake (Alert & Oriented to Patient Baseline) Airway and Respiratory Function: Patent airway with normal (patient baseline) respiratory exam Cardiovascular Function: Hemodynamically Stable Hydration Status: Adequately Hydrated Nausea & Vomiting: No Nausea or Vomiting Pain: Pt. Denies Any Pain Peripheral Nerve Block: Patient did not receive a nerve block
[2024-11-01 08:43] VITALS: BP 111/75; PULSE 62; RESP 16; TEMP 36.1; O2SAT 99
== END 2024-11-01 09:05 | disposition home or self-care (01) ==
LOC: SUR 11-02 12:26
PROVIDERS: PCP Nurse Practitioner; Visit Provider Surgery
PROC: 0DJD8ZZ Inspection of Lower Intestinal Tract, Via Natural or Artificial Opening Endoscopic (ICD-10-PCS; CPT 45378; principal; 2024-11-01 07:30)
DX: Z12.11 Encounter for screening for malignant neoplasm of colon (principal); D12.3 Benign neoplasm of transverse colon; I10 Essential (primary) hypertension; K21.9 Gastro-esophageal reflux disease without esophagitis; D12.4 Benign neoplasm of descending colon; D12.5 Benign neoplasm of sigmoid colon
CPT/HCPCS: 45380; 88305; J2704